=== PATIENT | male | born 1965 | race African-American/Black ===

== ENCOUNTER 2025-02-06 19:22 | Inpatient (IN) | payer OTHER, MEDICARE ==
[~2025-02-06] VITALS: Ht 172.7 cm; Wt 88.9 kg
[2025-02-06 19:25] VITALS: O2SAT 99
[2025-02-06] MEDS: SODIUM CHLORIDE 0.9% 1,000 ML IV ONE (19:53)
[2025-02-06 21:10] LABS: BASOPHILS % 0.8 % (0.0-2.0); EOSINOPHILS % 0.1 % (0.0-5.0); HEMATOCRIT. 29.1 % (42.0-52.0); HEMOGLOBIN. 8.5 g/dL (14.0-18.0); LYMPHOCYTES % 16.8 % (20.0-50.0); MEAN PLATELET VOLUME 9.3 fl (7.4-10.4); MONOCYTES % 5.3 % (2.0-8.0); NEUTROPHILS % 77.0 % (40.0-76.0); PLATELET 193 x1000/uL (130-400); RED BLOOD CELL COUNT 3.60 mill/uL (4.7-6.1); RED CELL DISTRIBUTION WIDTH 21.3 % (11.6-14.6)
[2025-02-06 21:31] LABS: CREATININE 1.7 mg/dL (0.6-1.3)
[2025-02-06 21:32] LABS: UREA NITROGEN BLOOD 30 mg/dL (9-23)
[2025-02-06 21:33] LABS: ASPARTATE AMINOTRANSFERASE 18 IU/L (<34); PROTEIN TOTAL 7.0 g/dL (6.0-8.3)
[2025-02-06 21:34] LABS: BILIRUBIN DIRECT 0.2 mg/dL (<=3.0); BILIRUBIN TOTAL 0.5 mg/dL (0.1-1.0)
[2025-02-06 21:42] LABS: TROPONIN I HIGH SENSITIVITY 128 ng/L (3.0-53)
[2025-02-06 22:05] LABS: BG DEOXYHEMOGLOBIN 75.9 % (0.0-5.0)
[2025-02-06] MEDS: INSULIN REGULAR (HUMULIN R) 1000UNITS/10ML VIAL IV ONE (22:20)
[2025-02-06] MEDS: ASPIRIN 325MG TABLET PO ONE (22:20)
[2025-02-06] MEDS ORDERED: ACETAMINOPHEN 325MG TABLET PO PRN (22:45)
[2025-02-06] MEDS ORDERED: ONDANSETRON HCL 4MG/2ML INJ IV PRN (22:45)
[2025-02-06] MEDS ORDERED: CLONIDINE 0.1MG TABLET PO PRN (22:45)
[2025-02-06] MEDS ORDERED: DEXTROSE 50% WATER 50ML SYRINGE IV PRN (22:45)
[2025-02-06] MEDS ORDERED: INSULIN REGULAR (HUMULIN R) 1000UNITS/10ML VIAL IV NR (22:45)
[2025-02-06] MEDS ORDERED: DOCUSATE SODIUM 100MG CAPSULE PO PRN (22:45)
[2025-02-06] MEDS ORDERED: IPRATROPIUM/ALBUTEROL 0.5-3(2.5)MG/3ML NEB HHN PRN (22:45)
[2025-02-06 23:08] LABS: CLARITY URINE TURBID (CLEAR); COLOR URINE YELLOW (YELLOW); GLUCOSE URINE 2+ (NEGATIVE); KETONES URINE NEGATIVE (NEGATIVE); LEUKOCYTE ESTERASE URINE 3+ (NEGATIVE); NITRITE URINE NEGATIVE (NEGATIVE); OCCULT BLOOD URINE 2+ (NEGATIVE); PH URINE 5.5 (4.5-8.0); PROTEIN URINE 4+ (NEGATIVE); SPECIFIC GRAVITY URINE 1.030 (1.005-1.030); UROBILINOGEN URINE 0.2 E.U./dL (0.2-1.0)
[2025-02-06 23:14] LABS: TROPONIN I HIGH SENSITIVITY 111 ng/L (3.0-53)
[2025-02-06 23:30] LABS: WBC URINE TNTC /hpf (0-2)
[2025-02-06 23:31] LABS: BACTERIA URINE TRACE; MUCUS URINE 2+ /lpf (NONE/TRACE); RBC URINE NONE SEEN /hpf (0-2); SQUAMOUS EPITHELIAL CELL URINE 1+ /lpf (RARE/1+); YEAST URINE 2+
[2025-02-07] VITALS: BP 100/74; PULSE 91; RESP 18; TEMP 36.7; TEMP 36.7516; O2SAT 96
[2025-02-07] MEDS ORDERED: PANT40TA51 PO (00:46)
[2025-02-07] MEDS ORDERED: BUDE10.32 (00:46)
[2025-02-07] MEDS ORDERED: PRAS10TA20 PO (00:46)
[2025-02-07] MEDS ORDERED: PROM25TA13 MT (00:46)
[2025-02-07] MEDS ORDERED: TAMS-54 PO (00:46)
[2025-02-07] MEDS: MORPHINE SULFATE 2 MG/ML INJ (NOT FOR IM USE) IV NR (02:43)
[2025-02-07] MEDS ORDERED: CEFTRIAXONE 1GM/50ML 50 ML IV SCH (03:00)
[2025-02-07 04:00] VITALS: BP 96/68; PULSE 88; RESP 23; TEMP 36.6; O2SAT 98
[2025-02-07] MEDS: CEFTRIAXONE 1GM/50ML 50 ML IV SCH (04:06)
[2025-02-07 06:50] LABS: CREATININE 1.5 mg/dL (0.6-1.3)
[2025-02-07] MEDS: BLOOD SUGAR DIAGNOSTIC STRIP TEST SCH (06:50)
[2025-02-07 06:51] LABS: LDL CHOLESTEROL 38 mg/dL (5-100); TRIGLYCERIDE 122 mg/dL (0-150); UREA NITROGEN BLOOD 33 mg/dL (9-23)
[2025-02-07 06:53] LABS: PHOSPHORUS 3.3 mg/dL (2.5-4.9)
[2025-02-07 07:01] LABS: BASOPHILS % 0.8 % (0.0-2.0); EOSINOPHILS % 0.5 % (0.0-5.0); HEMATOCRIT. 27.1 % (42.0-52.0); HEMOGLOBIN. 8.1 g/dL (14.0-18.0); LYMPHOCYTES % 33.0 % (20.0-50.0); MEAN PLATELET VOLUME 9.6 fl (7.4-10.4); MONOCYTES % 5.5 % (2.0-8.0); NEUTROPHILS % 60.2 % (40.0-76.0); PLATELET 188 x1000/uL (130-400); RED BLOOD CELL COUNT 3.38 mill/uL (4.7-6.1); RED CELL DISTRIBUTION WIDTH 21.5 % (11.6-14.6)
[2025-02-07 07:02] LABS: TROPONIN I HIGH SENSITIVITY 114 ng/L (3.0-53)
[2025-02-07 08:00] VITALS: BP 97/79; PULSE 97; RESP 23; TEMP 36.9; O2SAT 95
[2025-02-07] MEDS ORDERED: TAMSULOSIN HCL 0.4MG SR CAPSULE PO SCH (08:00)
[2025-02-07 08:14] LABS: CLARITY URINE TURBID (CLEAR); COLOR URINE YELLOW (YELLOW); GLUCOSE URINE TRACE (NEGATIVE); KETONES URINE NEGATIVE (NEGATIVE); LEUKOCYTE ESTERASE URINE 3+ (NEGATIVE); NITRITE URINE NEGATIVE (NEGATIVE); OCCULT BLOOD URINE 2+ (NEGATIVE); PH URINE 5.0 (4.5-8.0); PROTEIN URINE 3+ (NEGATIVE); SPECIFIC GRAVITY URINE 1.025 (1.005-1.030); UROBILINOGEN URINE 0.2 E.U./dL (0.2-1.0)
[2025-02-07 09:00] LABS: SQUAMOUS EPITHELIAL CELL URINE NONE SEEN /lpf (RARE/1+); WBC URINE TNTC /hpf (0-2)
[2025-02-07 09:01] LABS: BACTERIA URINE 1+; RBC URINE 0-2 /hpf (0-2); YEAST URINE 1+
[2025-02-07] MEDS ORDERED: NALOXONE HCL 0.4MG/ML VIAL IV PRN (09:45)
[2025-02-07] MEDS: INSULIN LISPRO 100 UNITS/ML SUBCUT SCH (09:55)
[2025-02-07] MEDS: PANTOPRAZOLE SODIUM 40 MG/VIAL IV SCH (09:56)
[2025-02-07] MEDS: HYDROCODONE/ACETAMINOPHEN 5/325MG TABLET PO PRN (09:56)
[2025-02-07] MEDS: ENOXAPARIN 40MG/0.4ML SYR SUBCUT SCH (09:56)
[2025-02-07] MEDS: ASPIRIN 81MG TABLET PO SCH (09:57)
[2025-02-07] MEDS: MAGNESIUM 4 G PREMIX 100 ML IV ONE (10:03)
[2025-02-07] MEDS: SODIUM CHLORIDE 0.9% 1,000 ML IV SCH (10:03)
[2025-02-07 12:00] VITALS: BP 108/89; PULSE 94; RESP 14; TEMP 36.8; O2SAT 94
[2025-02-07] MEDS: MORPHINE SULFATE 2 MG/ML INJ (NOT FOR IM USE) IV PRN (12:48)
[2025-02-07] MEDS: CLOPIDOGREL 75MG TABLET PO SCH (12:56)
[2025-02-07 16:00] VITALS: BP 92/79; PULSE 88; RESP 16; TEMP 36.7; O2SAT 99
[2025-02-07] MEDS: FERROUS SULFATE 325MG TABLET PO SCH (18:37)
[2025-02-07 21:13] VITALS: BP 92/60; PULSE 88; RESP 16; TEMP 36.4; O2SAT 95
[2025-02-07] MEDS: ATORVASTATIN CALCIUM 40MG TABLET PO SCH (21:33)
[2025-02-07 21:42] LABS: INFLUENZA TYPE A Presumptive Negative (Pres. Neg.); INFLUENZA TYPE B Presumptive Negative (Pres. Neg.)
[2025-02-07 21:43] LABS: RESPIRATORY SYNCYTIAL VIRUS Not Detected (Not Detectd)
[2025-02-07] MEDS: MELATONIN 3MG TABLET PO NR (22:29)
[2025-02-07 22:34] LABS: TROPONIN I HIGH SENSITIVITY 119 ng/L (3.0-53)
[2025-02-08 00:24] VITALS: BP 102/70; PULSE 83; RESP 14; TEMP 37.1; O2SAT 97
[2025-02-08] MEDS: ACETAMINOPHEN 325MG TABLET PO PRN (00:29)
[2025-02-08] MEDS: MELATONIN 3MG TABLET PO NR (04:12)
[2025-02-08 07:06] LABS: BASOPHILS % 1.0 % (0.0-2.0); EOSINOPHILS % 1.9 % (0.0-5.0); HEMATOCRIT. 27.2 % (42.0-52.0); HEMOGLOBIN. 8.3 g/dL (14.0-18.0); LYMPHOCYTES % 24.4 % (20.0-50.0); MEAN PLATELET VOLUME 9.5 fl (7.4-10.4); MONOCYTES % 4.7 % (2.0-8.0); NEUTROPHILS % 68.0 % (40.0-76.0); PLATELET 180 x1000/uL (130-400); RED BLOOD CELL COUNT 3.40 mill/uL (4.7-6.1); RED CELL DISTRIBUTION WIDTH 21.3 % (11.6-14.6)
[2025-02-08 07:09] LABS: CREATININE 1.2 mg/dL (0.6-1.3)
[2025-02-08 07:10] LABS: UREA NITROGEN BLOOD 28 mg/dL (9-23)
[2025-02-08 07:12] LABS: PHOSPHORUS 3.2 mg/dL (2.5-4.9)
[2025-02-08 07:14] LABS: FOLIC ACID (FOLATE) SERUM 3.80 ng/mL (>5.38); VITAMIN B12 SERUM 538 pg/mL (211-911)
[2025-02-08 08:00] VITALS: BP 107/67; PULSE 79; RESP 17; TEMP 36.7; O2SAT 97
[2025-02-08 08:28] LABS: *AMPHETAMINES SCREEN URINE NEGATIVE (NEGATIVE); *BARBITURATES SCREEN URINE NEGATIVE (NEGATIVE); *BENZODIAZEPINES SCREEN URINE NEGATIVE (NEGATIVE); *COCAINE SCREEN URINE NEGATIVE (NEGATIVE); CANNABINOID URINE SCREEN NEGATIVE (NEGATIVE); METHADONE URINE SCREEN NEGATIVE (NEGATIVE); OPIATES URINE SCREEN PRESUMPTIVE POSITIVE (NEGATIVE); PHENCYCLIDINE URINE SCREEN NEGATIVE (NEGATIVE)
[2025-02-08 08:29] LABS: ECSTASY MDMA SCREEN URINE NEGATIVE (NEGATIVE)
[2025-02-08] MEDS: TAMSULOSIN HCL 0.4MG SR CAPSULE PO SCH (08:49)
[2025-02-08] MEDS ORDERED: ENOXAPARIN 100MG/ML SYR SUBCUT SCH (10:30)
[2025-02-08 10:45] LABS: TROPONIN I HIGH SENSITIVITY 95 ng/L (3.0-53)
[2025-02-08] MEDS: ENOXAPARIN 40MG/0.4ML SYR SUBCUT NR (11:15)
[2025-02-08 11:56] LABS: INR 1.1
[2025-02-08 12:00] VITALS: BP 107/75; PULSE 83; RESP 17; TEMP 36.4; O2SAT 100
[2025-02-08 12:20] LABS: TROPONIN I HIGH SENSITIVITY 109 ng/L (3.0-53)
[2025-02-08 16:00] VITALS: BP 103/72; PULSE 89; RESP 18; TEMP 36.6
[2025-02-08] MEDS: IRON SUCROSE COMPLEX 100 MG/5 ML ML IV SCH (16:57)
[2025-02-08 19:32] VITALS: BP 97/70; PULSE 89; RESP 20; TEMP 37; O2SAT 98
[2025-02-08 22:38] LABS: TROPONIN I HIGH SENSITIVITY 94 ng/L (3.0-53)
[2025-02-08] MEDS: KETOROLAC 15MG/ML VIAL IV NR (22:50)
[2025-02-09 00:03] VITALS: BP 89/55; PULSE 93; RESP 13; TEMP 36.4; O2SAT 95
[2025-02-09 04:31] VITALS: BP 91/64; PULSE 97; RESP 18; TEMP 36.8; O2SAT 95
[2025-02-09 07:27] LABS: BASOPHILS % 1.3 % (0.0-2.0); EOSINOPHILS % 1.4 % (0.0-5.0); HEMATOCRIT. 26.7 % (42.0-52.0); HEMOGLOBIN. 8.0 g/dL (14.0-18.0); LYMPHOCYTES % 26.7 % (20.0-50.0); MEAN PLATELET VOLUME 9.5 fl (7.4-10.4); MONOCYTES % 6.5 % (2.0-8.0); NEUTROPHILS % 64.1 % (40.0-76.0); PLATELET 193 x1000/uL (130-400); RED BLOOD CELL COUNT 3.26 mill/uL (4.7-6.1); RED CELL DISTRIBUTION WIDTH 21.3 % (11.6-14.6)
[2025-02-09] MEDS ORDERED: METOPROLOL TARTRATE 5MG/5ML VIAL IV PRN (07:30)
[2025-02-09 07:39] LABS: CREATININE 1.1 mg/dL (0.6-1.3); UREA NITROGEN BLOOD 22 mg/dL (9-23)
[2025-02-09 07:41] LABS: PHOSPHORUS 3.2 mg/dL (2.5-4.9)
[2025-02-09 08:00] VITALS: BP 106/81; PULSE 87; RESP 14; TEMP 36.6; O2SAT 95
[2025-02-09 10:36] LABS: TROPONIN I HIGH SENSITIVITY 109 ng/L (3.0-53)
[2025-02-09] MEDS: GUAIFENESIN 200MG/10ML SUGAR FREE UDC PO PRN (10:57)
[2025-02-09] MEDS: MAGNESIUM/ALUMINUM HYDROXIDE/SIMETHICONE 30ML UDC PO PRN (10:58)
[2025-02-09] MEDS: FOLIC ACID 1MG TABLET PO SCH (10:58)
[2025-02-09 12:00] VITALS: PULSE 85; RESP 14; TEMP 36.7; O2SAT 95
[2025-02-09 16:00] VITALS: BP 97/65; PULSE 85; RESP 15; TEMP 36.7; O2SAT 95
[2025-02-09 20:28] VITALS: BP 92/66; PULSE 96; RESP 20; O2SAT 99
[2025-02-10] VITALS: BP 106/78; PULSE 95; RESP 15
[2025-02-10 03:56] VITALS: BP 104/77; PULSE 104; RESP 19; TEMP 36.7; O2SAT 100
[2025-02-10 07:24] LABS: BASOPHILS % 0.8 % (0.0-2.0); EOSINOPHILS % 0.9 % (0.0-5.0); HEMATOCRIT. 26.8 % (42.0-52.0); HEMOGLOBIN. 8.1 g/dL (14.0-18.0); LYMPHOCYTES % 25.6 % (20.0-50.0); MEAN PLATELET VOLUME 9.5 fl (7.4-10.4); MONOCYTES % 6.8 % (2.0-8.0); NEUTROPHILS % 65.9 % (40.0-76.0); PLATELET 173 x1000/uL (130-400); RED BLOOD CELL COUNT 3.34 mill/uL (4.7-6.1); RED CELL DISTRIBUTION WIDTH 21.6 % (11.6-14.6)
[2025-02-10 07:29] LABS: CREATININE 1.1 mg/dL (0.6-1.3); UREA NITROGEN BLOOD 22 mg/dL (9-23)
[2025-02-10 07:31] LABS: ASPARTATE AMINOTRANSFERASE 10 IU/L (<34); PROTEIN TOTAL 6.2 g/dL (6.0-8.3)
[2025-02-10 07:32] LABS: BILIRUBIN DIRECT 0.2 mg/dL (<=3.0); PHOSPHORUS 2.9 mg/dL (2.5-4.9)
[2025-02-10 07:33] LABS: BILIRUBIN TOTAL 0.6 mg/dL (0.1-1.0)
[2025-02-10 08:00] VITALS: BP 103/68; PULSE 93; RESP 16; TEMP 36.6; O2SAT 97
[2025-02-10 08:17] LABS: HEPATITIS A AB IGM NEGATIVE (Negative); HEPATITIS B CORE AB IGM NEGATIVE (Negative)
[2025-02-10 08:18] LABS: HEPATITIS C AB NON REACTIVE (Neg) (Negative)
[2025-02-10] MEDS ORDERED: ENOXAPARIN 30MG/0.3ML SYR SUBCUT SCH (09:00)
[2025-02-10] MEDS: INSULIN GLARGINE 100 UNITS/ML SUBCUT SCH (10:00)
[2025-02-10 12:00] VITALS: BP 106/75; PULSE 91; RESP 19; TEMP 36.4
[2025-02-10] MEDS ORDERED: IOHEXOL-350 100 ML BOTTLE ONE (12:19)
[2025-02-10] MEDS: MAGNESIUM 4 G PREMIX 100 ML IV NR (12:29)
[2025-02-10 15:36] VITALS: BP 101/76; PULSE 93; RESP 20; TEMP 98
[2025-02-10] MEDS ORDERED: CLOP-31 PO (15:41)
[2025-02-10] MEDS ORDERED: MYL30 PO (15:41)
[2025-02-10] MEDS ORDERED: LIP40 PO (15:41)
[2025-02-10] MEDS ORDERED: TOPUD PO (15:41)
[2025-02-10] MEDS ORDERED: PANT40TA51 PO (15:41)
[2025-02-10] MEDS ORDERED: DOCU-422 PO (15:41)
[2025-02-10] MEDS ORDERED: FLUT9.9S BOTHNSTRLS (15:41)
[2025-02-10] MEDS ORDERED: FOLI-43 PO (15:41)
[2025-02-10] MEDS ORDERED: FERR-63 PO (15:41)
[2025-02-10] MEDS ORDERED: ASPI-1160 PO (15:41)
[2025-02-10] MEDS ORDERED: BUDE10.32 INH (15:41)
[2025-02-10] MEDS ORDERED: INSU100I28 SQ (15:42)
[2025-02-10 16:00] VITALS: PULSE 93; RESP 18
== END 2025-02-10 18:44 | disposition home or self-care (01) | DRG 698 ==
LOC: ER 19:22 → 3WST 21:50 → EDBEDREQTM 21:53 → EDBEDREQ 21:53 → ENRESERV 22:34
PROVIDERS: ADMIT Internal Medicine; ATTEND Internal Medicine
DX: T83.511A Infection and inflammatory reaction due to indwelling urethral catheter, initial encounter (principal); I21.4 Non-ST elevation (NSTEMI) myocardial infarction; I42.9 Cardiomyopathy, unspecified; I50.22 Chronic systolic (congestive) heart failure; R16.0 Hepatomegaly, not elsewhere classified; N13.8 Other obstructive and reflux uropathy; D50.9 Iron deficiency anemia, unspecified; E11.621 Type 2 diabetes mellitus with foot ulcer; E03.8 Other specified hypothyroidism; N30.00 Acute cystitis without hematuria; I11.0 Hypertensive heart disease with heart failure; K76.0 Fatty (change of) liver, not elsewhere classified; E66.9 Obesity, unspecified; I34.0 Nonrheumatic mitral (valve) insufficiency; N18.9 Chronic kidney disease, unspecified; J45.909 Unspecified asthma, uncomplicated; Y83.8 Other surgical procedures as the cause of abnormal reaction of the patient, or of later complication, without mention of misadventure at the time of the procedure; E53.8 Deficiency of other specified B group vitamins; I44.0 Atrioventricular block, first degree; E78.5 Hyperlipidemia, unspecified; L97.519 Non-pressure chronic ulcer of other part of right foot with unspecified severity; S91.102A Unspecified open wound of left great toe without damage to nail, initial encounter; L97.529 Non-pressure chronic ulcer of other part of left foot with unspecified severity; K76.9 Liver disease, unspecified; I49.3 Ventricular premature depolarization; N40.1 Benign prostatic hyperplasia with lower urinary tract symptoms; Z79.4 Long term (current) use of insulin; Z79.899 Other long term (current) drug therapy; Z86.73 Personal history of transient ischemic attack (TIA), and cerebral infarction without residual deficits; Z87.440 Personal history of urinary (tract) infections; Z88.0 Allergy status to penicillin; Z90.49 Acquired absence of other specified parts of digestive tract; Z95.5 Presence of coronary angioplasty implant and graft; X58.XXXA Exposure to other specified factors, initial encounter; Y93.89 Activity, other specified; Y92.89 Other specified places as the place of occurrence of the external cause; Y99.8 Other external cause status; Z68.29 Body mass index [BMI] 29.0-29.9, adult
CPT/HCPCS: 36415; 71045; 72040; 74018; 74176; 75571; 76705; 76770; 80048; 80061; 80076; 80305; 81003; 82010; 82375; 82607; 82728; 82746; 82803; 82962; 83036; 83540; 83550; 83735; 83880; 84100; 84439; 84443; 84480; 84484; 85014; 85018; 85025; 85044; 86705; 86709; 87340; 87420; 87804; 93005; 93306; 99291; A4606; J0696; J1650; J1815; J1885; J2270; J2470; J3475; J7030; Q9967